=== PATIENT | female | born 1980 | race Caucasian/White ===

== ENCOUNTER → 2020-06-19 | Outpatient (CLI) | payer OTHER ==
[2020-06-19 08:26] LABS: HEMATOCRIT 39.5 % (37.0-47.0); HEMOGLOBIN 12.8 g/dL (12.5-16.0); MEAN PLATELET VOLUME 9.2 fl (7.4-10.4); RED BLOOD COUNT 4.53 M/mm3 (4.10-5.30); RED CELL DISTRIBUTION WIDTH 13.7 % (11.5-14.5); WHITE BLOOD COUNT 7.3 K/mm3 (4.8-10.8)
[2020-06-19 08:35] LABS: ALBUMIN 4.2 g/dL (3.5-5.0); POTASSIUM 4.7 mmol/L (3.5-5.1)
[2020-06-19 08:36] LABS: CALCIUM 9.1 mg/dL (8.3-10.5)
[2020-06-19 08:38] LABS: TOTAL PROTEIN 6.9 g/dL (6.4-8.3)
[2020-06-19 08:39] LABS: TOTAL BILIRUBIN 0.3 mg/dL (0.2-1.2)
[2020-06-19 09:20] LABS: URINE APPEARANCE CLEAR; URINE BILIRUBIN NEGATIVE (NEGATIVE); URINE BLOOD NEGATIVE (NEGATIVE); URINE COLOR YELLOW; URINE GLUCOSE NEGATIVE (NEGATIVE); URINE KETONE NEGATIVE (NEGATIVE); URINE LEUKOCYTE ESTERASE NEGATIVE (NEGATIVE); URINE NITRATE NEGATIVE (NEGATIVE); URINE PROTEIN(semi-quant) NEGATIVE (NEGATIVE); URINE UROBILINOGEN NORMAL (NORMAL); URINE WBC 0-1 /hpf (0-3)
== END ==
LOC: LAB 08:12
PROVIDERS: Family Medicine
DX: Z00.00 Encounter for general adult medical examination without abnormal findings (principal)

== ENCOUNTER → 2020-07-20 | Outpatient (CLI) | payer OTHER | LOC: LAB 13:11 | DX: S01.80XA Unspecified open wound of other part of head, initial encounter (principal); Z22.322 Carrier or suspected carrier of Methicillin resistant Staphylococcus aureus ==

== ENCOUNTER → 2020-10-31 | Outpatient (CLI) | payer BC ==
[~2020-10-31] MED LIST: BACTRIM DS TAB1 EACH PO; CEPHALEXIN500 M1 PO; DEPO-PROVER150 MG/M2 IM; DESYREL50 MG PO; EFFEXOR XR150 M1 PO; GLUCOPHAGE PO; LISINOPRIL10 MG PO
[2020-10-31 14:13] LABS: EOS # 0.1 (0.04-0.40); EOS % 0.6 % (1.0-5.0); HEMATOCRIT 38.1 % (37.0-47.0); LYMPH# 2.4 (1.50-4.00); MEAN CELL VOLUME 87 fl (78-100); MEAN CORPUSCULAR HEMOGLOBIN 27 pg (27-31); MEAN CORPUSCULAR HGB CONC 32 g/dL (33-37); MEAN PLATELET VOLUME 8.9 fl (7.4-10.4); MONO # 0.7 (0.20-0.80); NEU # 5.1 (1.40-6.50); PLATELET COUNT 468 K/mm3 (130-400); RED BLOOD COUNT 4.38 M/mm3 (4.10-5.30); RED CELL DISTRIBUTION WIDTH 13.5 % (11.5-14.5); WHITE BLOOD COUNT 8.2 K/mm3 (4.8-10.8)
[2020-10-31 14:19] LABS: ALBUMIN 4.3 g/dL (3.5-5.0); POTASSIUM 4.3 mmol/L (3.5-5.1)
[2020-10-31 14:20] LABS: CALCIUM 8.9 mg/dL (8.3-10.5)
[2020-10-31 14:22] LABS: TOTAL PROTEIN 6.7 g/dL (6.4-8.3)
[2020-10-31 14:24] LABS: TOTAL BILIRUBIN 0.3 mg/dL (0.2-1.2)
== END ==
LOC: LAB 13:39
PROVIDERS: Internal Medicine Infectious Disease
DX: L03.211 Cellulitis of face (principal)

== ENCOUNTER 2020-11-10 19:21 | Outpatient (RCR) | payer BC ==
[2020-11-01 15:24] VITALS: BP 121/92
[2020-11-02 15:45] VITALS: BP 150/82
[2020-11-03 15:37] VITALS: BP 112/68
[2020-11-04 15:29] VITALS: BP 168/100
[2020-11-05 15:53] VITALS: BP 125/83
[2020-11-06 15:28] VITALS: BP 134/75
[2020-11-07 15:34] VITALS: BP 132/87
[2020-11-08 20:15] VITALS: BP 147/89
[2020-11-09 19:21] VITALS: BP 130/77
[2020-11-10 19:27] VITALS: BP 146/93
== END 2020-11-10 21:00 | disposition home or self-care (01) ==
LOC: AMSURD 19:21
DX: L03.211 Cellulitis of face (principal)
CPT/HCPCS: J0878

== ENCOUNTER → 2020-11-13 | Outpatient (CLI) | payer BC ==
[2020-11-10 19:27] VITALS: BP 146/93
[2020-11-13 14:15] LABS: POTASSIUM 3.7 mmol/L (3.5-5.1)
[2020-11-13 14:16] LABS: CALCIUM 8.9 mg/dL (8.3-10.5)
[2020-11-13 14:40] LABS: URINE APPEARANCE CLEAR; URINE COLOR YELLOW
[2020-11-13 14:41] LABS: URINE BILIRUBIN NEGATIVE (NEGATIVE); URINE BLOOD NEGATIVE (NEGATIVE); URINE GLUCOSE NEGATIVE (NEGATIVE); URINE KETONE NEGATIVE (NEGATIVE); URINE LEUKOCYTE ESTERASE NEGATIVE (NEGATIVE); URINE NITRATE NEGATIVE (NEGATIVE); URINE PROTEIN(semi-quant) TRACE mg/dL (NEGATIVE); URINE UROBILINOGEN NORMAL (NORMAL)
[2020-11-13 16:11] LABS: EOS # 0.1 (0.04-0.40); HEMATOCRIT 40.3 % (37.0-47.0); LYMPH# 2.5 (1.50-4.00); MEAN CELL VOLUME 86 fl (78-100); MEAN CORPUSCULAR HEMOGLOBIN 28 pg (27-31); MEAN CORPUSCULAR HGB CONC 32 g/dL (33-37); MEAN PLATELET VOLUME 9.6 fl (7.4-10.4); PLATELET COUNT 256 K/mm3 (130-400); RED CELL DISTRIBUTION WIDTH 13.5 % (11.5-14.5); WHITE BLOOD COUNT 8.6 K/mm3 (4.8-10.8)
== END ==
LOC: LAB 11-12 09:29
PROVIDERS: Family Medicine
DX: R73.09 Other abnormal glucose (principal); I10 Essential (primary) hypertension; R19.7 Diarrhea, unspecified

== ENCOUNTER → 2020-12-04 | Outpatient (CLI) | payer BC ==
[2020-11-10 19:27] VITALS: BP 146/93
== END ==
LOC: MAMMO 09:09
DX: Z12.31 Encounter for screening mammogram for malignant neoplasm of breast (principal); N64.89 Other specified disorders of breast

== ENCOUNTER → 2020-12-19 | Outpatient (CLI) | payer BC | LOC: RAD 12:15 | DX: N60.12 Diffuse cystic mastopathy of left breast (principal); N60.11 Diffuse cystic mastopathy of right breast; N60.42 Mammary duct ectasia of left breast; N60.41 Mammary duct ectasia of right breast; R92.8 Other abnormal and inconclusive findings on diagnostic imaging of breast ==

== ENCOUNTER → 2021-07-24 | Outpatient (CLI) | payer BC | LOC: MAMMO 07-10 12:15 | DX: N60.02 Solitary cyst of left breast (principal); N60.42 Mammary duct ectasia of left breast ==

== ENCOUNTER → 2021-11-28 | Outpatient (CLI) | payer OTHER ==
[2021-11-28 09:04] LABS: HEMATOCRIT 38.3 % (37.0-47.0); HEMOGLOBIN 12.4 g/dL (12.5-16.0); MEAN PLATELET VOLUME 8.6 fl (7.4-10.4); RED BLOOD COUNT 4.69 M/mm3 (4.10-5.30); RED CELL DISTRIBUTION WIDTH 14.1 % (11.5-14.5); WHITE BLOOD COUNT 7.2 K/mm3 (4.8-10.8)
[2021-11-28 09:11] LABS: ALBUMIN 4.2 g/dL (3.5-5.0); POTASSIUM 4.9 mmol/L (3.5-5.1)
[2021-11-28 09:12] LABS: CALCIUM 9.5 mg/dL (8.3-10.5)
[2021-11-28 09:14] LABS: TOTAL PROTEIN 7.2 g/dL (6.4-8.3)
[2021-11-28 09:15] LABS: TOTAL BILIRUBIN 0.5 mg/dL (0.2-1.2)
[2021-11-28 09:25] LABS: URINE APPEARANCE HAZY; URINE BILIRUBIN NEGATIVE (NEGATIVE); URINE BLOOD TRACE (NEGATIVE); URINE COLOR YELLOW; URINE GLUCOSE NEGATIVE (NEGATIVE); URINE KETONE NEGATIVE (NEGATIVE); URINE LEUKOCYTE ESTERASE TRACE (NEGATIVE); URINE MUCUS PRESENT (NOT PRESENT); URINE NITRATE NEGATIVE (NEGATIVE); URINE PROTEIN(semi-quant) TRACE (NEGATIVE); URINE UROBILINOGEN NORMAL (NORMAL); URINE WBC 0-1 /hpf (0-3)
== END ==
LOC: LAB 08:37
PROVIDERS: Family Medicine
DX: Z00.00 Encounter for general adult medical examination without abnormal findings (principal)

== ENCOUNTER → 2022-12-02 | Outpatient (CLI) | payer BC ==
[2022-12-02 07:55] LABS: BASO # 0.04 K/mm3 (0.02-0.10); EOS % 1.3 % (1.0-5.0); HEMOGLOBIN 12.1 g/dL (12.5-16.0); LYMPH# 1.83 K/mm3 (1.50-4.00); MEAN CELL VOLUME 86 fl (78-100); MEAN CORPUSCULAR HEMOGLOBIN 27 pg (27-31); MEAN CORPUSCULAR HGB CONC 32 g/dL (33-37); MEAN PLATELET VOLUME 8.7 fl (7.4-10.4); MONO # 0.69 K/mm3 (0.20-0.80); NEU # 4.77 K/mm3 (1.40-6.50); PLATELET COUNT 451 K/mm3 (130-400); RED BLOOD COUNT 4.41 M/mm3 (4.10-5.30); RED CELL DISTRIBUTION WIDTH 14.4 % (11.5-14.5); WHITE BLOOD COUNT 7.4 K/mm3 (4.8-10.8)
[2022-12-02 08:20] LABS: ALBUMIN 4.3 g/dL (3.5-5.0); POTASSIUM 4.6 mmol/L (3.5-5.1)
[2022-12-02 08:21] LABS: CALCIUM 9.5 mg/dL (8.3-10.5)
[2022-12-02 08:24] LABS: TOTAL BILIRUBIN 0.5 mg/dL (0.2-1.2)
[2022-12-02 08:54] LABS: URINE APPEARANCE HAZY; URINE COLOR YELLOW
[2022-12-02 08:55] LABS: URINE BILIRUBIN NEGATIVE (NEGATIVE); URINE BLOOD NEGATIVE (NEGATIVE); URINE GLUCOSE NEGATIVE (NEGATIVE); URINE KETONE NEGATIVE (NEGATIVE); URINE LEUKOCYTE ESTERASE NEGATIVE (NEGATIVE); URINE NITRATE NEGATIVE (NEGATIVE); URINE PROTEIN(semi-quant) NEGATIVE (NEGATIVE); URINE UROBILINOGEN NORMAL (NORMAL); URINE WBC 0-1 /hpf (0-3)
== END ==
LOC: LAB 07:36
PROVIDERS: Family Medicine
DX: Z00.00 Encounter for general adult medical examination without abnormal findings (principal)

== ENCOUNTER → 2023-06-18 | Outpatient (CLI) | payer BC ==
[2023-06-18 11:10] LABS: POTASSIUM 5.5 mmol/L (3.5-5.1)
[2023-06-18 11:11] LABS: CALCIUM 9.5 mg/dL (8.3-10.5)
== END ==
LOC: LAB 10:37
PROVIDERS: Family Medicine
DX: R73.09 Other abnormal glucose (principal)

== ENCOUNTER → 2023-06-21 | Outpatient (CLI) | payer BC ==
[2023-06-21 11:54] LABS: POTASSIUM 4.5 mmol/L (3.5-5.1)
[2023-06-21 11:55] LABS: CALCIUM 9.5 mg/dL (8.3-10.5)
== END ==
LOC: LAB 11:16
PROVIDERS: Physician Assistant Medical
DX: E87.5 Hyperkalemia (principal)

== ENCOUNTER → 2023-12-01 | Outpatient (CLI) | payer BC ==
[2023-12-01 07:24] LABS: URINE WBC 0 /hpf (0-3)
[2023-12-01 07:33] LABS: BASO # 0.03 K/mm3 (0.02-0.10); EOS # 0.08 K/mm3 (0.04-0.40); EOS % 0.9 % (1.0-5.0); HEMATOCRIT 40.2 % (37.0-47.0); LYMPH# 1.94 K/mm3 (1.50-4.00); MEAN CELL VOLUME 88 fl (78-100); MEAN CORPUSCULAR HEMOGLOBIN 28 pg (27-31); MEAN CORPUSCULAR HGB CONC 32 g/dL (33-37); MEAN PLATELET VOLUME 8.6 fl (7.4-10.4); MONO # 0.81 K/mm3 (0.20-0.80); NEU # 5.98 K/mm3 (1.40-6.50); PLATELET COUNT 485 K/mm3 (130-400); RED BLOOD COUNT 4.57 M/mm3 (4.10-5.30); RED CELL DISTRIBUTION WIDTH 13.1 % (11.5-14.5); WHITE BLOOD COUNT 8.9 K/mm3 (4.8-10.8)
[2023-12-01 07:42] LABS: ALBUMIN 4.4 g/dL (3.5-5.0)
[2023-12-01 07:45] LABS: TOTAL PROTEIN 7.5 g/dL (6.4-8.3)
[2023-12-01 07:46] LABS: TOTAL BILIRUBIN 0.6 mg/dL (0.2-1.2)
[2023-12-01 07:58] LABS: URINE APPEARANCE CLEAR (CLEAR); URINE BILIRUBIN NEGATIVE (NEGATIVE); URINE BLOOD NEGATIVE (NEGATIVE); URINE COLOR YELLOW (YELLOW); URINE GLUCOSE NEGATIVE (NEGATIVE); URINE KETONE NEGATIVE (NEGATIVE); URINE LEUKOCYTE ESTERASE NEGATIVE (NEGATIVE); URINE MUCUS PRESENT (NOT PRESENT); URINE NITRATE NEGATIVE (NEGATIVE); URINE PROTEIN(semi-quant) TRACE (NEGATIVE)
== END ==
LOC: LAB 07:15
PROVIDERS: Family Medicine
DX: Z00.00 Encounter for general adult medical examination without abnormal findings (principal)

== ENCOUNTER → 2024-08-02 | Outpatient (CLI) | payer BC | LOC: MAMMO 08:19 | DX: Z12.31 Encounter for screening mammogram for malignant neoplasm of breast (principal) ==